=== PATIENT | female | born 1990 | race Caucasian/White ===

== ENCOUNTER → 2018-03-06 13:58 | Outpatient (CLI) | payer OTHER, MEDICAID, SELFPAY ==
[2018-03-06 14:55] LABS: Add Manual Diff / Slide Review NO; Basophils Percent Auto 0.3 % (0-2); Eosinophils Percent Auto 0.7 % (2-4); Hematocrit 37.5 % (36-46); Hemoglobin 12.7 g/dL (12.0-16.0); Lymphocytes Percent Auto 18.1 % (25-40); Mean Corpuscular HGB Conc 33.9 % (30-36); Mean Corpuscular Hemoglobin 28.1 PG (26-34); Mean Corpuscular Volume 82.9 fL (80-100); Monocytes Percent Auto 5.8 % (3-14); Neutrophils Absolute Auto 5700 /uL (3000-5900); Neutrophils Percent Auto 75.1 % (50-75); Platelet Count 226 X10^3/uL (150-400); Red Blood Cell Count 4.53 X10^6/uL (4.0-5.2); Red Cell Distribution Width 14.4 % (11.6-14.8); White Blood Cell Count 7.6 X10^3/uL (4.5-11.0)
[2018-03-06 16:35] LABS: Hepatitis B Surface Antigen NEGATIVE s/c (NEGATIVE); Rubella Antibody IgG 5.9 IU/mL (>15)
[2018-03-06 16:52] LABS: HIV 1 and 2 Antibody NEGATIVE (NEGATIVE)
[2018-03-06 20:27] LABS: Urine N gonorrhoeae NOT DETECTED
[2018-03-06 21:52] LABS: Urine Chlamydia NOT DETECTED
[2018-03-08 14:11] LABS: HSV 2 IGG AB < 0.90 index (< 0.90); HSV1IGG < 0.90 index (< 0.90)
[2018-03-08 14:13] LABS: Varicella IgG Antibody < 135.00 Index (< 135.00)
[2018-03-10 07:59] LABS: Rapid Plasma Reagin NON-REACTIVE
== END ==
PROVIDERS: Family Provider Obstetrics & Gynecology; Visit Provider Obstetrics & Gynecology
DX: Z34.91 Encounter for supervision of normal pregnancy, unspecified, first trimester (principal); Z3A.14 14 weeks gestation of pregnancy
CPT/HCPCS: 36415; 80055; 86695; 86696; 86703; 86787; 86850; 86900; 86901; 87491; 87591

== ENCOUNTER → 2018-04-04 11:24 | Outpatient (CLI) | payer OTHER, MEDICAID, SELFPAY ==
[2018-04-11 09:53] LABS: AFP, Serum 52.9 ng/mL; Calc Gestational Age 18.6; Cigarette Smoker No; Donated Egg NOT GIVEN; Donor Egg Age NOT GIVEN; Estriol, Free 1.17 ng/mL; Inhibin A, Dimeric 110 pg/mL; Maternal Ethnicity White; Maternal Weight 215 lbs; Number of Fetuses NOT GIVEN; Previous Pregnancy Down Syndro NOT GIVEN; hCG, MoM 0.46; hCG, Serum 8.5 IU/mL
== END ==
PROVIDERS: Visit Provider Obstetrics & Gynecology
DX: Z34.82 Encounter for supervision of other normal pregnancy, second trimester (principal)
CPT/HCPCS: 36415; 82105; 82677; 84702; 86336

== ENCOUNTER → 2018-04-17 13:51 | Outpatient (CLI) | payer OTHER, MEDICAID, SELFPAY ==
--- NOTE | 2018-04-17 13:55 | DI.US.S_ITS ---
PROCEDURE: US OB >= 14 WEEKS FETUS INDICATIONS: Anatomy Scan OUTSIDE/PRIOR DATING DATA: Last menstrual period (LMP): 11/25/17. LMP-based estimated date of delivery (NOEMÍ): 09/01/18. First dating scan (date and location): 03/06/18. Estimated date of delivery (NOEMÍ) from first dating scan: 08/30/18. TECHNIQUE: Real-time scanning was performed of the fetus, with image documentation and biometric measurements. Endovaginal scanning: No COMPARISON: [facility], , OB >= 14 WEEKS FETUS, 04/04/2018, 11:07. FINDINGS: General: A single living intrauterine gestation is present. Presentation: Breech. Placenta: Placental position is anterior, without previa. Amniotic fluid index: 10.5 cm, normal range is 5-24 cm. heart rate: 149 beats per minute. Maternal cervical canal: 5.0 cm long. biometrics: Biparietal diameter: 19 weeks 3 days Head circumference: 20 weeks 3 days Abdominal circumference: 20 weeks 3 days Femur length: 20 weeks 3 days Estimated gestational age from initial scan: 20 weeks 5 days Composite gestational age from present scan: 20 weeks 1 day Estimated weight and percentile: 351 g; 20th percentile Measurement variability for biometric dating: +/- 7 days from 14 weeks to 15 weeks 6 days gestation, +/- 10 days from 16 weeks to 21 weeks 6 days gestation, +/- 2 weeks from 22 weeks to 27 weeks 6 days gestation, +/- 3 weeks for 28 weeks gestation or later. weight reference: 4500 g or EFW >90/95% is considered macrosomia or large for gestational age. EFW <10% is small for gestational age. EFW 5% or less is considered intra-uterine growth restriction. Anatomic survey: Neuro: Ventricles are non-dilated at less than 10 mm. Cisterna magna is normal at 3-11 mm. Cerebellum is normal in size and morphology. Nuchal skin fold: Normal at less than 6 mm between 14-21 weeks gestational age. Face: Nose and lips, facial profile are normal. Spine: No evidence for spina bifida. Heart: 4-chambered heart is present, with normal ventricular outflow tracts. Diaphragm: Diaphragm is intact. Stomach: Left-sided stomach is present. Kidneys: No hydronephrosis. Normal is less than 5 mm in 2nd trimester, less than 7 mm in 3rd trimester. Cord: 3-vessel cord has orthotopic insertion. Bladder: Normal in size. Extremities: All 4 extremities identified. IMPRESSION: 1. Single living IUP redemonstrated and interval growth is normal. 2. Normal anatomic survey. Dictated by: Reji Park [facility] Interpreted: Kathi Salamanca MD on 04/17/2018 at 15:33 Approved by: Kathi Salamanca MD, PhD on 04/17/2018 at 16:27
== END ==
PROVIDERS: Visit Provider Obstetrics & Gynecology
DX: Z34.82 Encounter for supervision of other normal pregnancy, second trimester (principal); Z3A.20 20 weeks gestation of pregnancy
CPT/HCPCS: 76811

== ENCOUNTER → 2018-05-30 13:20 | Outpatient (CLI) | payer OTHER, MEDICAID, SELFPAY ==
[2018-05-30 15:10] LABS: Hemoglobin 12.1 g/dL (12.0-16.0)
[2018-05-30 15:25] LABS: GTT (PREG) 1 Hour PP 50gm Dose 105 mg/dL (76-139)
== END ==
PROVIDERS: Visit Provider Obstetrics & Gynecology
DX: Z3A.26 26 weeks gestation of pregnancy (principal)
CPT/HCPCS: 36415; 82950; 85014; 85018

== ENCOUNTER → 2018-08-08 11:53 | Outpatient (CLI) | payer OTHER, MEDICAID, SELFPAY ==
[2018-08-09 15:46] LABS: Strep Grp B PCR POS for Grp B Strep
== END ==
PROVIDERS: Visit Provider Obstetrics & Gynecology
DX: Z34.83 Encounter for supervision of other normal pregnancy, third trimester (principal)
CPT/HCPCS: 87653

== ENCOUNTER 2018-08-24 07:09 | Inpatient (IN) | payer OTHER, MEDICAID, SELFPAY ==
[2018-08-24] MEDS: LACTATED RINGERS 1,000 ML 100 ML IV ×3 (08:00→15:22)
[2018-08-24 08:07] LABS: Add Manual Diff / Slide Review NO; Basophils Absolute Auto 0 /uL (0-100); Basophils Percent Auto 0.3 % (0-2); Eosinophils Absolute Auto 0 /uL (0-450); Eosinophils Percent Auto 0.5 % (2-4); Hematocrit 34.9 % (36-46); Hemoglobin 11.3 g/dL (12.0-16.0); Lymphocytes Absolute Auto 1700 /uL (1100-4500); Lymphocytes Percent Auto 16.8 % (25-40); Mean Corpuscular HGB Conc 32.4 % (30-36); Mean Corpuscular Hemoglobin 25.6 PG (26-34); Mean Corpuscular Volume 79.1 fL (80-100); Monocytes Absolute Auto 500 /uL (0-900); Monocytes Percent Auto 4.8 % (3-14); Neutrophils Absolute Auto 7900 /uL (1500-7000); Neutrophils Percent Auto 77.6 % (50-75); Platelet Count 264 X10^3/uL (150-400); Red Blood Cell Count 4.41 X10^6/uL (4.0-5.2); Red Cell Distribution Width 15.4 % (11.6-14.8); White Blood Cell Count 10.2 X10^3/uL (4.5-11.0)
[2018-08-24 08:54] VITALS: BP 123/61
--- NOTE | 2018-08-24 11:53 | PM.PREOP ---
Pre-operative Note Interval Note History & Physical reviewed/Exam performed by Physician: Yes Changes to H&P: No
[2018-08-24] MEDS: CEFAZOLIN 2 GM/100 ML FROZ.PIGGY IV (12:04)
--- NOTE | 2018-08-24 12:32 | SUR.OPER ---
Supine on Padded OR bed, head on pillow, safety belt at thigh, arms secured on padded arm boards at <90 degrees abduction. Bump under right buttock. Legs uncrossed with pillow under knees, gel pad to heels, tape over blanket to lower legs.
--- NOTE | 2018-08-24 13:07 | SUR.OPER ---
VIABLE FEMALE INFANT DELIVERED AT 1243. CORD BLOOD AND PLACENTA TO OB WITH RN.
[2018-08-24 13:27] VITALS: BP 113/70; PULSE 90; RESP 16; TEMP 36.3; O2SAT 95
[2018-08-24 13:32] VITALS: BP 123/76; PULSE 88; RESP 24; O2SAT 98
[2018-08-24 13:38] VITALS: BP 119/66; PULSE 90; RESP 18; O2SAT 98
[2018-08-24 13:44] VITALS: BP 119/64; PULSE 88; RESP 22; TEMP 36.3; O2SAT 95
[2018-08-24] MEDS: ONDANSETRON 4 MG/2 ML INJ IV (17:49)
--- NOTE | 2018-08-24 18:09 | P.OP_ITS ---
Operative Date/Time/Diagnoses Date of procedure: 08/24/18 Time of procedure: 13:30 Pre-op diagnosis: 39 weeks gestation Previous section x3 Post-op diagnosis: same Procedure: Procedures Operation Date: 08/24/18 09:45 Actual Procedures Side Surgeon p Section-Repeat Ijeoma Styles MD Indications: 39 weeks gestation Previous section x3 Surgeon: Ijeoma Styles Anesthesia Type: Spinal (With Duramorph) Operative Notes Findings: Live female in the double footling breech presentation Bladder to uterine adhesions Large veins over the lower uterine segment Closure Type: primary Specimen(s): other (Cord blood, cord pH, placenta) Applied: catheter Estimated blood loss (mL): 700 Blood products transfused: none Procedure in detail: The patient was taken to the operating room where she was placed in the seated position. Spinal anesthesia with Duramorph was administered. The patient was then placed in the dorsal supine position with a leftward tilt. She was prepped and draped in the usual sterile fashion. A timeout was performed. After spinal analgesia was found to be adequate, a Pfannenstiel skin incision was made through the previous incision and carried through to the underlying layer fascia. The fascia was nicked in the midline, and the incision extended bilaterally with the Landers scissors. The superior aspect of the fascial incision was grasped with a Breda clamps, elevated, and the underlying rectus muscles dissected off sharply and bluntly. Attention was then turned to the inferior aspect of this incision which in a similar fashion was grasped with a Breda clamps, elevated, and the underlying rectus muscles dissected off sharply and bluntly. The rectus muscles were in the midline. The peritoneum was identified, grasped between 2 hemostats, and entered sharply with the Metzenbaum scissors. This incision was extended superiorly and inferiorly with good visualization of the bladder. The bladder blade was inserted. There were large veins over the lower uterine segment where the bladder flap was to be created. Care was taken to avoid these as the bladder flap was created. The vesicouterine peritoneum was identified, grasped with the pickup, and entered sharply with the Metzenbaum scissors. This incision was extended bilaterally, and the bladder flap was created digitally. The bladder blade was reinserted. The lower uterine segment was incised in a transverse fashion with the scalpel. Upon entering the amniotic sac there was a large amount of clear amniotic fluid. The infant was found to be in the double footling breech presentation. A total breech extraction was performed. A triple nuchal cord was reduced. The nose and mouth were suctioned with bulb suction. The cord was double clamped and cut. The was handed off to waiting RN a nd RT. Cord bloods were obtained. A piece of cord for cord pH was obtained. The placenta was delivered manually. The uterus was cleared of all clots and debris. The cervix was opened with a ring forcep. The uterine incision was repaired with #1 chromic in a running interlocking fashion, and a second layer the same suture was used for an imbricating layer. Hemostasis was achieved. The tubes and ovaries were examined and were found to be normal. The gutters were cleared of all clots and debris. The bladder flap was reapproximated using 2-0 Vicryl in a running fashion. The parietal peritoneum was closed using 2-0 Vicryl in a running fashion. The fascia was reapproximated using 0 Vicryl in a running fashion. The subcutaneous layer was copiously irrigated with warm normal saline. 5 simple interrupted sutures of 3-0 Vicryl were placed to reapproximate the subcutaneous layer. The skin was closed with 4-0 undyed Vicryl in a subcuticular fashion. Steri-Strips were placed. An Aquacell dressing was placed. The uterus was expressed of a small amount of old blood. Sponge, lap, and instrument counts were correct x-2. The patient tolerated the procedure well, and was taken to PACU in stable condition. Post-operative Condition: stable Disposition: PACU Plan for aftercare: To Center after recovery
[2018-08-24] MEDS: KETOROLAC 30 MG/ML VIAL IV (19:57)
[2018-08-24] MEDS: METOCLOPRAMIDE 10 MG/2 ML INJ IV (19:57)
[2018-08-25] MEDS: KETOROLAC 30 MG/ML VIAL IV ×2 (02:32→08:43)
[2018-08-25 05:36] LABS: Hematocrit 26.3 % (36-46); Hemoglobin 8.7 g/dL (12.0-16.0)
[2018-08-25] MEDS: CITALOPRAM 20 MG TABLET PO (08:48)
[2018-08-25] MEDS: DOCUSATE 250 MG CAPSULE PO (08:49)
[2018-08-25] MEDS: PRENATAL VIT,CALC/IRON/FOLIC 1 TABLET 1 TAB PO (08:49)
--- NOTE | 2018-08-25 14:35 | PM.OBPN.1 ---
Subjective - OB Interval history: Patient is postoperative day # 1 repeat low-transverse section. Patient comments: no complaints, pain well controlled and tolerating diet [place] baby status: doing well feeding status: exclusively breast feeding Date Patient Seen: 08/25/18 Time Patient Seen: 11:30 Exam Vital Signs (past 8 hours): Blood pressure 113/67, pulse 65, temperature 97? Oxygen Delivery Method Room Air Narrative Exam Narrative: Abdomen is soft, nontender. Uterus is firm, at U, nontender. Dressing is intact and dry. Mild lochia. Extremities without edema and nontender. Objective Labs Result Diagrams: 08/25/18 05:15 Labs: Laboratory Results - last 24 hr 08/25/18 05:15 Hgb 8.7 L Hct 26.3 L Assessment & Plan (1) Delivery by section of full-term : Problem details: Normal 1st day post section exam with the patient doing extremely well. Routine care. Home likely tomorrow. Status: Acute Current Visit: Yes Time Spent With Patient Total time spent is greater than 50% in coordination of care (as documented) at patient's floor/unit and/or counseling patient: less than 15 minutes
[2018-08-25] MEDS: IBUPROFEN 600 MG TABLET PO ×2 (14:44→20:58)
[2018-08-25] MEDS: OXYCODONE/ACETAMINOPHEN 5/325 TABLET 2 TAB PO (20:01)
[2018-08-26] MEDS: OXYCODONE/ACETAMINOPHEN 5/325 TABLET 2 TAB PO ×3 (00:01→11:45)
[2018-08-26] MEDS: IBUPROFEN 600 MG TABLET PO ×2 (02:55→08:32)
[2018-08-26] MEDS: PRENATAL VIT,CALC/IRON/FOLIC 1 TABLET 1 TAB PO (08:22)
[2018-08-26] MEDS: DOCUSATE 250 MG CAPSULE PO (08:22)
[2018-08-26] MEDS: CITALOPRAM 20 MG TABLET PO (08:31)
--- NOTE | 2018-08-26 09:11 | PM.OBDS.1 ---
Discharge Providers Date of admission: 08/24/18 07:09 Consults: 08/24/18 14:41 Consult to Lead Manufacturing Technician Routine Comment: Discharge provider: Roman Banuelos MD Discharge Date: 08/26/18 Summary Date Patient Seen: 08/26/18 Time Patient Seen: 09:11 Hospital Course: The patient is a 28-year-old status post repeat section and delivered of a live-born female weighing 7 lb 11 and 0.5 oz. Post delivery the patient is done well. She has remained afebrile stable vital signs and was progressively element and ambulated. Peripartum Data Infant Delivery Method: Section Laceration description: None Procedures: Repeat section care type complications: none Discharge Diagnosis (1) Delivery by section of full-term infant: Status: Acute Problem Details: Normal 1st day post section exam with the patient doing extremely well. Routine care. Home likely tomorrow. Status at Discharge Functional status at discharge: independent ambulation Overall status at discharge: patient is progressing back to baseline Time Spent with Patient Total time spent providing and/or coordinating discharge services: Less than 30 minutes Specific discharge activities: No stairs Time spent discussing smoking cessation with patient: 3 to 10 minutes Objective ECG Impression: Status post section doing well Labs Result Diagrams: 08/25/18 05:15 Discharge Plan Discharge Plan Patient Disposition: Home Discharge comment: Call with fever, chills or redness or drainage around incision or bleeding vaginally more than a pad in an hour Discharge Med Rec/Prescriptions Prescriptions: New oxycodone-acetaminophen [Percocet] 5-325 mg tablet 1 tab PO Q4-6H PRN (Reason: pain) Qty: 30 RF: 0 ferrous gluconate 324 mg (37.5 mg iron) tablet 324 mg PO DAILY Qty: 60 RF: 0 ferrous gluconate 324 mg (37.5 mg iron) tablet 324 mg PO DAILY Qty: 60 RF: 0 Continued citalopram 20 MG tablet 20 mg PO QDAY Qty: 30 RF: 0 ibuprofen 600 MG tablet 600 mg PO Q6HP PRNQty: 30 RF: 0 docusate sodium 250 MG capsule 250 mg PO QDAY Qty: 20 RF: 0 Discontinued oxycodone-acetaminophen 5 MG/325 MG tablet PO Q4HP PRNQty: 30 RF: 0 Follow up/Referrals: Ijeoma Styles MD [Physician] - 1 Week Provider Discharge Instructions Diet: Diet as Tolerated Activity: No heavy lifting. No intercourse Skin/Wound/Dressing Care Report to your healthcare provider any signs of infection, such as:: chills, fever, increased pain, unusual drainage and unusual redness Dressing: Do not remove Visit Report/Discharge Packet Instructions: DI for Discharge Data Attending Provider: Ijeoma Styles Admit Date/Time: 08/24/18 07:09
[2018-08-26 10:46] VITALS: BP 119/64; PULSE 88; RESP 22; TEMP 36.3
== END 2018-08-26 12:35 | disposition home or self-care (01) | DRG 540 ==
PROVIDERS: Admitting Provider Obstetrics & Gynecology; Visit Provider Obstetrics & Gynecology
PROC: 10D00Z1 Extraction of Products of Conception, Low, Open Approach (ICD-10-PCS; CPT 59514; principal; 2018-08-24 09:45)
DX: O34.219 Maternal care for unspecified type scar from previous cesarean delivery (principal); O32.1XX0 Maternal care for breech presentation, not applicable or unspecified; Z3A.39 39 weeks gestation of pregnancy; Z37.0 Single live birth
CPT/HCPCS: 36415; 59050; 59514; 85014; 85018; 85025; 86850; 86900; 86901; 94762; J0690; J1885; J2274; J2405; J2590; J2765; J3010